=== PATIENT | female | born 1970 | race Caucasian/White ===

== ENCOUNTER 2020-08-03 20:25 | Emergency (ER) | payer OTHER, SELFPAY ==
--- NOTE | ~2020-08-03 | XR_ITS ---
EXAMINATION: XR ankle LT min 3V EXAM DATE: 08/03/2020 21:00 INDICATION: Initial encounter following injury, with pain of the left ankle. TECHNIQUE: Left ankle frontal, lateral and oblique projections obtained and reviewed. There is no pr ior study for comparison. FINDINGS: There is acute closed posttraumatic fracture of the left distal fibular metaphysis extendin g into the superolateral aspect of the mortise. There is a few millimeters posterior displacement. Al ignment anatomic The mortise relationship does appear intact. There is however possible medial malleo lar tip avulsion fracture versus a chronic finding identified on one of the projections. Acute avulsi on could make mortise relationship unstable. Recommend CT scan. IMPRESSION: 1. Acute left distal fibular metaphyseal fracture into mortise. 2. Possible acute medial malleolar tip avulsion; recommend CT without contrast. Reviewed, dictated and finalized at location A. IMPRESSION: 1. Acute left distal fibular metaphyseal fracture into mortise. 2. Possible acute medial malleolar tip avulsion; recommend CT without contrast .
--- NOTE | ~2020-08-03 | CT_ITS ---
EXAMINATION: CT ankle LT wo con EXAM DATE: 08/03/2020 21:52 INDICATION: Left ankle fracture. TECHNIQUE: Spiral CT ankle LT was performed without contrast. Axial, coronal and sagittal images w ere reviewed. The dose-length product (DLP) for this examination was 270.59 mGy-cm. The exposure wa s tailored according to patient size (auto mA exposure control), and iterative reconstruction (ASIR) was used as additional dose reduction technique. Correlation is made to x-ray earlier same date. FINDINGS: Acute oblique left distal fibular metaphyseal fracture extending into the mortise with abou t 3 mm posterior displacement. There is overlying soft tissue swelling. The ankle mortise appears int act. The medial malleolar abnormality is a chronic finding, sequela from a prior avulsion injury. Calcaneu s, talus are unremarkable. IMPRESSION: 1. Acute left fibular distal metaphyseal fracture into mortise. 2. Sequela from old medial malleolar avulsion. Reviewed, dictated and finalized at location A.
[2020-08-03 20:38] VITALS: BP 117/67; PULSE 84; RESP 16; TEMP 36.5; O2SAT 100
[2020-08-03] MEDS: HYDROcodone/acetaminophen (*CRX) 5-325 MG TABLET 1 TAB PO (21:32)
--- NOTE | 2020-08-03 22:45 | ED.LOWEXIN ---
HPI - Extremity Injury (Lower) General Chief Complaint: Extremity Injury, Lower Stated Complaint: left ankle pain Time Seen by Provider: 08/03/20 20:56 History of Present Illness HPI Narrative: Patient is a 50-year-old female who presents ER with left ankle pain. She was playing with her dog when it took out her leg and she twisted and felt a crack. She is able to hop and side but has pain when bearing weight. Significant swelling over the lateral aspect of the ankle. Occasional numbness radiating to her feet but is not constant and she does have sensation. Did not strike her head or lose consciousness. No additional concerns. Related Data Allergies Allergy/AdvReac Type Severity Reaction Status Date / Time Penicillins Allergy Rash Verified 08/03/20 21:31 Review of Systems Constitutional: Constitutional: Denies chills and Denies fever(s) Musculoskeletal: Musculoskeletal: Denies back pain, Reports arthralgias, Reports joint swelling and Denies muscle cramps Neurologic: Denies focal weakness and Denies numbness PMFSH Past Medical History Medical History (Updated 08/03/20 @ 22:50 by Venkata Diggs MD) Healthy female adult Surgical History Surgical History (Updated 08/03/20 @ 22:46 by Venkata Diggs MD) No pertinent past surgical history Social History Social History (Updated 08/03/20 @ 22:46 by Venkata Diggs MD) Smoking status: Never smoker Exam Narrative: Exam Narrative: GENERAL: Well-appearing, well-nourished, and in no acute distress. HEAD: Normocephalic, atraumatic. ENT: Mucous membranes moist. CHEST: Clear to auscultation. No respiratory distress. HEART: Regular rate and rhythm. Normal peripheral pulses. ABDOMEN: Soft, nontender, nondistended. EXTREMITIES: Left lower extremity with significant swelling over the lateral malleolus for there is tenderness. Range of motion of the ankle limited due to pain. No tenderness of the medial malleolus. Normal dorsalis pedis pulse. Sensation intact. SKIN: Warm, dry, no rash. NEURO: Alert and oriented x3. Course Course Emergency Course: Discussed with orthopedic surgery. Patient placed in short leg posterior. Discharged with crutches. Vital Signs Vital signs: Vital Signs Temperature 97.7 F 08/03/20 20:38 Pulse Rate 84 08/03/20 20:38 Respiratory Rate 16 05/12/21 20:38 Blood Pressure 117/67 08/03/20 20:38 Pulse Oximetry 100 08/03/20 20:38 Temperature 97.7 F 08/03/20 20:38 Pulse Rate 84 08/03/20 20:38 Respiratory Rate 16 08/03/20 20:38 Blood Pressure 117/67 08/03/20 20:38 Pulse Oximetry 100 08/03/20 20:38 Procedures Orthopedic Splinting/Casting Injury #1: Splinting/Casting Date: 08/03/20 Splinting/Casting Time: 22:53 Side: left Lower Extremity Injury Location: ankle Splint: customized in ED OCL: short leg Pre-Procedure Neuro Vascular Exam: normal Post-Procedure Neuro Vascular Exam: normal Other Orthopedic Equipment: crutches MDM - Extremity Injury (Lower) Imaging Data Radiologist's impression: ITS Impressions Ankle X-Ray 08/03/20 21:03 IMPRESSION: 1. Acute left distal fibular metaphyseal fracture into mortise. 2. Possible acute medial malleolar tip avulsion; recommend CT without contrast. Ankle CT 08/03/20 21:54 IMPRESSION: 1. Acute left fibular distal metaphyseal fracture into mortise. 2. Sequela from old medial malleolar avulsion. Discharge Plan Discharge Clinical Impression: Closed left fibular fracture Patient Disposition: Home, Self-Care Condition: Stable Instructions: Ankle Fracture (ED), Crutch Instructions (ED) Additional Instructions: Return to the ER if you suffer new injury, you have chest pain or shortness of breath, your foot is cold and blue, you have additional concerns. Prescriptions: New hydrocodone-acetaminophen 5-325 mg tablet 1 tablet PO Q6H PRN (Re
[2020-08-03 23:08] VITALS: BP 112/63; PULSE 74; RESP 16; TEMP 36.7; O2SAT 100
== END 2020-08-03 23:10 | disposition home or self-care (01) ==
PROVIDERS: Emergency Provider Emergency Medicine; PCP Internal Medicine Endocrinology, Diabetes & Metabolism
DX: S82.402A Unspecified fracture of shaft of left fibula, initial encounter for closed fracture (principal); X50.0XXA Overexertion from strenuous movement or load, initial encounter
CPT/HCPCS: 29515; 73610; 73700; 99284; A9270